=== PATIENT | female | born 1950 | race Caucasian/White ===

== ENCOUNTER 2016-09-24 08:06 | Emergency (ER) | payer OTHER ==
[~2016-09-24] VITALS: Wt 63.5 kg
[2016-09-24] MEDS ORDERED: ACETAMINOPHEN 500 MG TAB PO STA (09:46)
--- NOTE | 2016-09-24 10:21 | RADRPT ---
PROCEDURE: XR Chest. CLINICAL INDICATION: Cough and fever. TECHNIQUE: Single frontal view. COMPARISON: None. FINDINGS: The lungs are clear. The heart size is normal. There is calcification in the aorta consistent with atherosclerosis. There is no pleural effusion. There is no pneumothorax. IMPRESSION: 1. Atherosclerosis. 2. Clear lungs. RPTAT: QQ .Song Gallego MD, MD Date Time Electronically viewed and signed by .Song Gallego MD, MD on 09/24/2016 10:20 .R/
--- NOTE | 2016-09-24 10:52 | ERD ---
ER Documentation Chief Complaint Date/Time DATE: 09/24/16 TIME: 10:49 Chief Complaint fever and cough and headache for the past week. no distress. mild sob HPI This is a 58-year-old female who presents to the emergency department today complaining of fever, cough, headache, sore throat and runny nose for the past 6 days. States that she has taken Advil and Tylenol intermittently. Denies any vomiting, diarrhea. ROS All systems reviewed and are negative except as per history of present illness. Medications Home Meds Active Scripts Guaifenesin-Dextromethorphan* (Robitussin* DM) 100MG/10MG/5ML Syrup, 10 ML PO Q4H Y for COUGH for 5 Days, ML Prov:SHRAVAN CHRISTYC 09/24/16 Oseltamivir Phosphate* (Tamiflu*) 75 Mg Capsule, 75 MG PO BID for 5 Days, CAP Prov:SHRAVAN CHRISTYC 09/24/16 Acetaminophen* (Tylophen*) 500 Mg Capsule, 1 CAP PO Q6H Y for PAIN AND OR ELEVATED TEMP, #30 CAP Prov:SHRAVAN CHRISTYC 09/24/16 Ibuprofen* (Motrin*) 600 Mg Tab, 600 MG PO Q6, #30 TAB Prov:SHRAVAN CHRISTY-C 09/24/16 PMhx/Soc Hx Miscellaneous Medical Probl: Yes (dm) Physical Exam Vitals Vital Signs Date Time Temp Pulse Resp B/P Pulse Ox O2 Delivery O2 Flow Rate FiO2 09/24/16 08:09 100.5 97 22 115/54 98 Physical Exam Const: No acute distress Head: Atraumatic Eyes: Normal Conjunctiva ENT: Ears TMs normal. Nose no drainage. Throat no erythema no exudate. Neck: Full range of motion..~ No meningismus. Resp: Clear to auscultation bilaterally. No absent breath sounds. No wheezing Cardio: Regular rate and rhythm, no murmurs Abd: Soft, non tender, non distended. Normal bowel sounds Skin: No petechiae or rashes Neur: Awake and alert Psych: Normal Mood and Affect Results 24 hrs Current Medications Medications (Trade) Dose Ordered Sig/Maria R Route PRN Reason Start Time Stop Time Status Last Admin Dose Admin Acetaminophen (Tylenol Tab) 500 mg ONCE STAT PO 09/24/16 09:46 09/24/16 09:47 DC 09/24/16 09:51 DIAGNOSTIC IMAGING REPORT Patient: SELAM CHAMPION : 1950 Age: 66 Sex: F MR #: [id number] DOS: 09/24/16 0000 Ordering MD: SHRAVAN CHRISTY PA-C Location: [facility] Room/Bed: PROCEDURE: XR Chest. CLINICAL INDICATION: Cough and fever. TECHNIQUE: Single frontal view. COMPARISON: None. FINDINGS: The lungs are clear. The heart size is normal. There is calcification in the aorta consistent with atherosclerosis. There is no pleural effusion. There is no pneumothorax. IMPRESSION: 1. Atherosclerosis. 2. Clear lungs. RPTAT: QQ .Song Gallego MD, MD Date Time Electronically viewed and signed by .Song Gallego MD, on 09/24/2016 10:20 .R/ CC: SHRAVAN CHRISTY PA-C Procedures/MDM This is a 66-year-old female who presents to the emergency department today with flulike symptoms for the past 6 days. Patient had a low-grade fever of 100.5 here in the emergency department. She is complaining of a headache and cough. I did obtain a chest x-ray. Chest x-ray shows atherosclerosis. Otherwise lungs are clear. There is no pleural effusion, pneumothorax. Low suspicion for PE, abscess, pneumonia, pleural effusion I have low suspicion for strep pharyngitis, peritonsillar abscess, retropharyngeal abscess, otitis media, PNA, sinusitis, abscess, meningitis, sepsis, or other acute infectious bacterial process. Patient was given Tylenol here in the emergency department. Patient does have a history of diabetes and hypertension and other comorbidities and therefore will be given a prescription for Tamiflu. I have explained to both the patient and her son that this this may not provide any improvement in symptoms given the length and duration of her symptoms however she may try. I will also give the patient a prescription for Tylenol, Motrin, Robitussin. At this time the patient is stable for discharge and outpatient management. They should follow up with their PCP in the next 1-2. They may return to the emergency department sooner if symptoms persist or worsen. Patient and son understood and agreed with the plan. Departure Diagnosis: Primary Impression: Flu-like symptoms Condition: SHRAVAN Fernandes PA-C Sep 24, 2016 10:52
[2016-09-24] MEDS ORDERED: OSLT75C PO (11:09)
[2016-09-24] MEDS ORDERED: IBUP-1542 PO (11:09)
[2016-09-24] MEDS ORDERED: ACET500C5 PO (11:09)
[2016-09-24] MEDS ORDERED: UDROBDM PO (11:10)
[2016-09-24 11:26] VITALS: TEMP 98.5
== END 2016-09-24 11:27 | disposition home or self-care (01) ==
LOC: FTE 08:06
DX: R50.9 Fever, unspecified (principal); R05 Cough; E11.9 Type 2 diabetes mellitus without complications; R51 Headache; J02.9 Acute pharyngitis, unspecified; R06.02 Shortness of breath; R09.89 Other specified symptoms and signs involving the circulatory and respiratory systems
CPT/HCPCS: 71010; Z7502; Z7610

== ENCOUNTER 2018-04-08 14:41 | Emergency (ER) | END 2018-04-08 17:34 | disposition home or self-care (01) ==

== ENCOUNTER 2018-09-07 12:42 | Emergency (ER) | payer OTHER ==
[~2018-09-07] VITALS: Wt 62.4 kg
[~2018-09-07 12:42] MED LIST: ACET500C5 PO; ELEC100080 PO; GUAI5SYR2 PO; IBUP-1542 PO; ONDA4TAB8 PO; OSEL75CA23 PO
--- NOTE | 2018-09-07 16:32 | ERD ---
ER Documentation Chief Complaint Chief Complaint bib son, referred by pmd, :cc: cp since yesterday HPI 68-year-old female history of diabetes, hypertension and hyperlipidemia referred to the ED by her PMD for evaluation of chest pain. Patient reports she was awakened from sleep 2 nights ago with severe, sharp, stabbing, nonradiating substernal chest pain which seemed to resolve but then during the following day pain became diffuse and pressure-like. Denies shortness of breath, nausea, vomiting or diaphoresis. There were no relieving or exacerbating factors but pain had resolved by the evening. She was evaluated by her PMD today and referred to the ED for further evaluation. Currently asymptomatic. No leg pain or swelling. Denies abdominal pain or back pain. No URI symptoms, cough or hemoptysis. No fevers or chills. ROS All systems reviewed and are negative except as per history of present illness. Medications Home Meds Active Scripts Electrolyte,Oral (Pedialyte) 1,000 Ml Solution, 100 ML PO Q6 PRN for FEVER, #1000 ML Prov:SHRAVAN CHRISTY-C 04/08/18 Oseltamivir Phosphate* (Tamiflu*) 75 Mg Capsule, 75 MG PO BID for 5 Days, CAP Prov:SHRAVAN CHRISTY-C 04/08/18 Acetaminophen* (Tylophen*) 500 Mg Capsule, 1 CAP PO Q6H PRN for PAIN AND OR ELEVATED TEMP, #30 CAP Prov:SHRAVAN CHRISTY-C 04/08/18 Ondansetron Hcl* (Zofran*) 4 Mg Tablet, 4 MG PO Q6H for NAUSEA AND/OR VOMITING, #30 TAB Prov:SHRAVAN CHRISTY-C 04/08/18 Guaifenesin-Dextromethorphan* (Robitussin* DM) 100MG/10MG/5ML Syrup, 10 ML PO Q4H PRN for COUGH for 5 Days, ML Prov:SHRAVAN CHRISTYC 09/24/16 Oseltamivir Phosphate* (Tamiflu*) 75 Mg Capsule, 75 MG PO BID for 5 Days, CAP Prov:SHRAVAN CHRISTY-C 09/24/16 Acetaminophen* (Tylophen*) 500 Mg Capsule, 1 CAP PO Q6H PRN for PAIN AND OR ELEVATED TEMP, #30 CAP Prov:SHRAVAN CHRISTY PA-C 09/24/16 Ibuprofen* (Motrin*) 600 Mg Tab, 600 MG PO Q6, #30 TAB Prov:NASIMA MAGANAPHYLLIS Sullivan PA-C 09/24/16 Allergies Allergies: Coded Allergies: No Known Allergy (Unverified , 04/08/18) PMhx/Soc Reviewed in chart. As per HPI. History of Surgery: No Anesthesia Reaction: No Hx Neurological Disorder: No Hx Respiratory Disorders: No Hx Cardiac Disorders: Yes (Hypertension) Hx Psychiatric Problems: No Hx Miscellaneous Medical Probl: Yes (dm, hyperlipidemia) Hx Alcohol Use: No Hx Substance Use: No Hx Tobacco Use: No Smoking Status: Never smoker FmHx Mother: CVA. No family history of coronary artery disease or sudden cardiac . Physical Exam Vitals Vital Signs Date Temp Pulse Resp B/P (MAP) Pulse Ox O2 O2 Flow FiO2 Time Delivery Rate 09/07/18 70 20 111/57 99 Room Air 18:50 (75) 09/07/18 97.8 76 18 121/57 100 12:45 (78) Physical Exam Const: Alert, elderly no acute distress Head: Atraumatic Eyes: Pupils equal react to light, extraocular wounds are intact. Normal Conjunctiva ENT: Normal External Ears, Nose and Mouth. Neck: Full range of motion. No JVD. Resp: Breath sounds are equal and clear to auscultation bilaterally Chest wall: No tenderness Cardio: Regular rate and rhythm, no murmurs, gallops or rubs Abd: Soft, non tender, non distended. No rebound or guarding. No masses or abnormal pulsations. Normal bowel sounds Skin: No petechiae or rashes Back: No midline or flank tenderness Ext: No cyanosis, or edema. Pulses 4+ in all extremities. Neur: Awake and alert. No focal deficit. Motor and sensory equal bilaterally. Psych: Normal Mood and Affect. Patient does not appear anxious or depressed. Result Diagram: 09/07/18 1709 09/07/18 170 Results 24 hrs Laboratory Tests Test 09/07/18 17:09 09/07/18 21:20 White Blood Count 4.3 10^3/ul Red Blood Count 3.92 10^6/ul Hemoglobin 12.6 g/dl Hematocrit 38.6 % Mean Corpuscular Volume 98.5 fl Mean Corpuscular Hemoglobin 32.1 pg Mean Corpuscular Hemoglobin Concent 32.6 g/dl Red Cell Distribution Width 13.9 % Platelet Count 273 10^3/UL Mean Platelet Volume 10.2 fl Immature Granulocytes % 0.200 % Neutrophils % 42.9 % Lymphocytes % 38.6 % Monocytes % 11.8 % Eosinophils % 5.8 % Basophils % 0.7 % Nucleated Red Blood Cells % 0.0 /100WBC Immature Granulocytes # 0.010 10^3/ul Neutrophils # 1.9 10^3/ul Lymphocytes # 1.7 10^3/ul Monocytes # 0.5 10^3/ul Eosinophils # 0.3 10^3/ul Basophils # 0.0 10^3/ul Nucleated Red Blood Cells # 0.0 10^3/ul D-Dimer 252.00 ng/ml D-Dimer Comment Sodium Level 139 mmol/L Potassium Level 4.1 mmol/L Chloride Level 100 mmol/L Carbon Dioxide Level 28 mmol/L Anion Gap 11 Blood Urea Nitrogen 10 mg/dl Creatinine 0.35 mg/dl Est Glomerular Filtrat Rate mL/min > 60 mL/min Glucose Level 88 mg/dl Calcium Level 9.5 mg/dl Total Bilirubin 0.1 mg/dl Direct Bilirubin 0.00 mg/dl Indirect Bilirubin 0.1 mg/dl Aspartate Amino Transf (AST/SGOT) 33 IU/L Alanine Aminotransferase (ALT/SGPT) 28 IU/L Alkaline Phosphatase 80 IU/L Troponin I < 0.012 ng/ml < 0.012 ng/ml Total Protein 7.8 g/dl Albumin 4.3 g/dl Globulin 3.50 g/dl Albumin/Globulin Ratio 1.22 Creatine Kinase 31 IU/L Creatine Kinase Index 1.2 Creatinine Kinase MB (Mass) 0.38 ng/ml Current Medications Medications Dose Sig/Maria R Start Time Status Last (Trade) Ordered Route PRN Stop Time Admin Dose Reason Admin Aspirin 325 mg ONCE STAT 09/07/18 DC 09/07/18 (Aspirin) PO 16:50 17:03 09/07/18 16:53 Procedures/MDM DOCUMENTS REVIEWED: ED nurse, prior records LAB INTERPRETATION: CBC reveals mild leukopenia but no anemia or thrombocytopenia. Chemistry is unremarkable for electrolyte abnormalities, renal insufficiency or hyperglycemia. Troponin is negative. D-dimer is not elevated. EKG: Time: 12:47. This rhythm. Ventricular rate 75. Normal MI and QRS. Q waves in leads V1 and V2. No acute ST segment elevation or depression. No ectopy. No axis my Interpretation IMAGING: ROCEDURE: XR Chest. CLINICAL INDICATION: chest pain TECHNIQUE: Single frontal view of the chest was obtained COMPARISON: CR CHEST 09/24/2016 FINDINGS: The heart and mediastinum are within normal limits. The lungs are clear. There is no pleural effusion or pneumothorax. RPTAT: AA IMPRESSION: No acute disease. .Du Bright MD, MD Date Time Electronically viewed and signed by .Du Bright MD, on 09/07/2018 17:21 .S/ MEDICAL DECISION MAKIN-year-old female history of diabetes, hypertension and hyperlipidemia referred to the ED by her PMD for evaluation of chest pain. The patient presents with chest pain and I considered pulmonary embolism, aortic dissection, pneumothorax among other diagnoses. Evaluation for acute coronary syndrome was performed. No acute ischemic EKG changes. No radiographic evidence of pneumonia or pneumothorax. Troponin is negative. Low risk for pulmonary embolism and as d-dimer is negative there is no indication for CT pulmonary angiogram. The HEART score was utilized for risk stratification and found to be 5. Aspirin given. Patient at moderate risk requires admission for the risk stratification. Patient to be transferred to [facility] by [facility] operator ambulance. Dr. Zimmerman accepting CALLS/CONSULTS: Time: 20:08, [place]. Dr. Zimmerman. Patient accepted for transfer to [facility] Counseled patient and family regarding diagnosis, diagnostic results and plan for admission. Departure Diagnosis: Primary Impression: Chest pain with moderate risk for cardiac etiology Additional Impressions: Essential hypertension Diabetes mellitus type 2 in nonobese Condition: Serious FADI HAMILTON MD Sep 07, 2018 16:32
[2018-09-07] MEDS ORDERED: ASPIRIN 325 MG TAB PO STA (16:50)
[2018-09-07 23:15] VITALS: BP 132/66; PULSE 73; RESP 20
[2018-09-08] MEDS ORDERED: LOSA50TA14 PO (00:21)
[2018-09-08] MEDS ORDERED: CALC600T24 PO (00:21)
[2018-09-08] MEDS ORDERED: ATOR10TA65 PO (00:21)
[2018-09-08] MEDS ORDERED: GLIM4TAB PO (00:21)
[2018-09-08] MEDS ORDERED: METF850T13 PO (00:21)
[2018-09-08] MEDS ORDERED: FER325 PO (00:21)
== END 2018-09-07 23:15 | disposition short-term general hospital (02) ==
LOC: E/R 12:42
DX: I10 Essential (primary) hypertension (principal); E11.9 Type 2 diabetes mellitus without complications
CPT/HCPCS: 36415; 71045; 80053; 82550; 82553; 84484; 85025; 85378; 93005; Z7502; Z7610